=== PATIENT | female | born 1985 | race Caucasian/White ===

== ENCOUNTER 2018-09-10 08:46 | Emergency (ER) | payer OTHER ==
[2018-09-10] MEDS ORDERED: FAMOTIDINE 20 MG/2 ML VIAL IV ONE (09:27)
[2018-09-10] MEDS ORDERED: METHYLPREDNISOLONE 125 MG INJ ONE (09:27)
[2018-09-10] MEDS ORDERED: DIPHENHYDRAMINE 50 MG/ML VIAL ONE (09:27)
--- NOTE | 2018-09-10 10:38 | EDPHYS ---
Physician Documentation [facility] Name: Sara Luevano Age: 32 yrs Sex: Female : 1985 Arrival Date: 09/10/2018 Time: 08:46 Bed 6 Private MD: ED Physician Catrachito Montanez HPI: 09/10 09:32 This 32 yrs old Female presents to ER via Ambulatory with complaints of Chest pm1 Numbness, Bee Sting, Numbness - Leg. 09:32 The patient's rash thought to be caused by insect bites. The rash is located on the pm1 abdomen. The rash can be described as raised. Onset: The symptoms/episode began/occurred this morning. Associated signs and symptoms: Pertinent positives: chest numbness, and numbness to bilateral thighs, Pertinent negatives: difficulty breathing, fever, swelling of lips, swelling of throat, swelling of tongue, vomiting, wheezing. Severity of symptoms: in the emergency department the symptoms have improved. 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 The patient has not experienced similar symptoms in the past. The patient has not recently seen a physician. Patient was bitten by a red wasp on her abdominal area on her way to work. Patient reported numbness to chest and numbness to bilateral thighs that has improved with the administration of Benadryl by mouth at school. No shortness of breath, sore throat. 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 - Social history:: Smoking status: . - Ebola Screening: : Patient denies travel to an Ebola-affected area in the 21 days before illness onset. ROS: 09:40 Constitutional: Negative for fever, chills, and weight loss, Eyes: Negative for injury, pm1 pain, redness, and discharge, ENT: Negative for injury, pain, and discharge, Neck: Negative for injury, pain, and swelling, Cardiovascular: Negative for chest pain, palpitations, and edema, Respiratory: Negative for shortness of breath, cough, wheezing, and pleuritic chest pain, Abdomen/GI: Negative for abdominal pain, nausea, vomiting, diarrhea, and constipation, Back: Negative for injury and pain, : Negative for injury, bleeding, discharge, and swelling, MS/Extremity: Negative for injury and deformity. 09:40 Neuro: Negative for headache, weakness, numbness, tingling, and seizure. 09:40 Skin: Positive for rash, of the abdomen. Exam: 09:40 Constitutional: This is a well developed, well nourished patient who is awake, alert, pm1 and in no acute distress. Head/Face: Normocephalic, atraumatic. Eyes: Pupils equal round and reactive to light, extra-ocular motions intact. Lids and lashes normal. Conjunctiva and sclera are non-icteric and not injected. Cornea within normal limits. Periorbital areas with no swelling, redness, or edema. ENT: Nares patent. No nasal discharge, no septal abnormalities noted. Tympanic membranes are normal and external auditory canals are clear. Oropharynx with no redness, swelling, or masses, exudates, or evidence of obstruction, uvula midline. Mucous membranes moist. Neck: Trachea midline, no thyromegaly or masses palpated, and no cervical lymphadenopathy. Supple, full range of motion without nuchal rigidity, or vertebral point tenderness. No Meningismus. Chest/axilla: Normal chest wall appearance and motion. Nontender with no deformity. No lesions are appreciated. Cardiovascular: Regular rate and rhythm with a normal S1 and S2. No gallops, murmurs, or rubs. Normal PMI, no JVD. No pulse deficits. Respiratory: Lungs have equal breath sounds bilaterally, clear to auscultation and percussion. No rales, rhonchi or wheezes noted. No increased work of breathing, no retractions or nasal flaring. Abdomen/GI: Soft, non-tender, with normal bowel sounds. No distension or tympany. No guarding or rebound. No evidence of tenderness throughout. Back: No spinal tenderness. No costovertebral tenderness. Full range of motion. 09:40 MS/ Extremity: Pulses equal, no cyanosis. Neurovascular intact. Full, normal range of motion. 09:40 Skin: Appearance: normal except for affected area, consistent with urticaria. 09:40 Neuro: Orientation: is normal, Motor: is normal, Sensation: is normal, no obvious gross deficits. Vital Signs: 08:58 BP 133 / 93; Pulse 80; Resp 16; Temp 98.2; Pulse Ox 99% on R/A; Weight 70.31 kg; Height iw 5 ft. 6 in. (167.64 cm); Pain 0/10; 09:44 BP 127 / 83; Pulse 80; Resp 16; Pulse Ox 100% on R/A; hb 10:59 BP 121 / 78; Pulse 81; Resp 17; Pulse Ox 99% on R/A; tw2 08:58 Body Mass Index 25.02 (70.31 kg, 167.64 cm) iw MDM: 09:01 Patient medically screened. [facility] 10:37 Data reviewed: vital signs. Data interpreted: Pulse oximetry: on room air is 100 %. pm1 Interpretation: normal. Counseling: I had a detailed discussion with the patient and/or guardian regarding: the historical points, exam findings, and any diagnostic results supporting the discharge/admit diagnosis, the need for outpatient follow up, to return to the emergency department if symptoms worsen or persist or if there are any questions or concerns that arise at home. 09/10 09:11 Order name: IV Saline Lock; Complete Time: 09:51 pm1 Administered Medications: 09:20 Drug: Benadryl 25 mg Route: IVP; Site: right antecubital; tw2 11:05 Follow up: Response: No adverse reaction tw2 09:24 Drug: Pepcid 20 mg Route: IVP; Site: right antecubital; tw2 11:04 Follow up: Response: No adverse reaction tw2 09:28 Drug: SOLU-Medrol 125 mg Route: IVP; Site: right antecubital; tw2 11:04 Follow up: Response: No adverse reaction tw2 Disposition: 12:37 Co-signature as Attending Physician, Catrachito Montanez MD I agree with the assessment and [facility] plan of care. Disposition: 09/10/18 10:38 Discharged to Home. Impression: Insect bite (nonvenomous) of abdominal wall. - Condition is Stable. - Discharge Instructions: Insect Bite. - Medication Reconciliation Form, Thank You Letter, Antibiotic Education, Prescription Opioid Use, Work release form form. - Follow up: Emergency Department; When: As needed; Reason: Worsening of condition. Follow up: Private Physician; When: 2 - 3 days; Reason: Recheck today's complaints, Continuance of care, Re-evaluation by your physician. - Problem is new. - Symptoms have improved. Signatures: Catrachito Montanez MD MD cha Marinas, Patrick [employer] SALES REPRESENTATIVE [employer] SALES REPRESENTATIVE pm1 Audrey Sheth RN RN tw2 Corrections: (The following items were deleted from the chart) 11:04 10:38 09/10/2018 10:38 Discharged to Home. Impression: Insect bite (nonvenomous) of tw2 abdominal wall. Condition is Stable. Forms are Work release form, Medication Reconciliation Form, Thank You Letter, Antibiotic Education, Prescription Opioid Use. Follow up: Emergency Department; When: As needed; Reason: Worsening of condition. Follow up: Private Physician; When: 2 - 3 days; Reason: Recheck today's complaints, Continuance of care, Re-evaluation by your physician. Problem is new. Symptoms have improved. pm1
--- NOTE | 2018-09-10 10:38 | ER ---
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 Transition of care: patient was not received from another setting of care. Onset: The symptoms/episode began/occurred this morning. Anaphylaxis evaluation, no signs or symptoms of anaphylaxis were noted. Onset of symptoms was September 10, 2018. Risk Assessment: Do you want to hurt yourself or someone else? Patient reports no desire to harm self or others. Initial Sepsis Screen: Does the patient meet any 2 criteria? No. Patient's initial sepsis screen is negative. Does the patient have a suspected source of infection? No. Patient's initial sepsis screen is negative. Care prior to arrival: Medication(s) given: benadryl. 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 - Social history:: Smoking status: . - Ebola Screening: : Patient denies travel to an Ebola-affected area in the 21 days before illness onset. Screenin:08 Abuse screen: Denies threats or abuse. Nutritional screening: No deficits noted. tw2 Tuberculosis screening: No symptoms or risk factors identified. Fall Risk None identified. Assessment: 09:33 General: Appears in no apparent distress. slender, well groomed, Behavior is calm, tw2 cooperative, appropriate for age. Pain: Complains of pain in chest - topically from wasp sting. Neuro: Level of Consciousness is awake, alert, obeys commands, Oriented to person, place, time, situation. Cardiovascular: Capillary refill < 3 seconds Patient's skin is warm and dry. Respiratory: Airway is patent Respiratory effort is even, unlabored, Respiratory pattern is regular, symmetrical, Breath sounds are clear bilaterally. GI: No signs and/or symptoms were reported involving the gastrointestinal system. Abdomen is flat, Bowel sounds present X 4 quads. : No signs and/or symptoms were reported regarding the genitourinary system. EENT: No signs and/or symptoms were reported regarding the EENT system. Derm: Skin is pink, warm \T\ dry. Musculoskeletal: Range of motion: intact in all extremities. 10:00 Reassessment: Patient appears in no apparent distress at this time. No changes from tw2 previously documented assessment. Patient and/or family updated on plan of care and expected duration. Pain level reassessed. Patient is alert, oriented x 3, equal unlabored respirations, skin warm/dry/pink. 11:00 Reassessment: Patient appears in no apparent distress at this time. No changes from tw2 previously documented assessment. Patient and/or family updated on plan of care and expected duration. Pain level reassessed. Patient is alert, oriented x 3, equal unlabored respirations, skin warm/dry/pink. Vital Signs: 08:58 BP 133 / 93; Pulse 80; Resp 16; Temp 98.2; Pulse Ox 99% on R/A; Weight 70.31 kg; Height iw 5 ft. 6 in. (167.64 cm); Pain 0/10; 09:44 BP 127 / 83; Pulse 80; Resp 16; Pulse Ox 100% on R/A; hb 10:59 BP 121 / 78; Pulse 81; Resp 17; Pulse Ox 99% on R/A; tw2 08:58 Body Mass Index 25.02 (70.31 kg, 167.64 cm) iw ED Course: 08:46 Patient arrived in ED. as 09:00 Lopez Caro NP is PHCP. pm1 09:00 Catrachito Montanez MD is Attending Physician. pm1 09:00 Bed in low position. Call light in reach. Adult w/ patient. Pulse ox on. NIBP on. tw2 09:01 Triage completed. iw 09:07 Audrey Sheth RN is Primary Nurse. tw2 09:09 Arm band placed on. tw2 09:20 Inserted saline lock: 22 gauge in right antecubital area, using aseptic technique. tw2 11:03 No provider procedures requiring assistance completed. IV discontinued, intact, tw2 bleeding controlled, No redness/swelling at site. Pressure dressing applied. Administered Medications: 09:20 Drug: Benadryl 25 mg Route: IVP; Site: right antecubital; tw2 11:05 Follow up: Response: No adverse reaction tw2 09:24 Drug: Pepcid 20 mg Route: IVP; Site: right antecubital; tw2 11:04 Follow up: Response: No adverse reaction tw2 09:28 Drug: SOLU-Medrol 125 mg Route: IVP; Site: right antecubital; tw2 11:04 Follow up: Response: No adverse reaction tw2 Outcome: 10:38 Discharge ordered by . pm1 11:03 Discharged to home ambulatory, with significant other. tw2 11:03 Condition: stable 11:03 Discharge instructions given to patient, significant other, Instructed on discharge instructions, follow up and referral plans. Demonstrated understanding of instructions, follow-up care. 11:04 Patient left the ED. tw2 Signatures: Christina Reynoso Irene, RN RN iw Lopez Caro NP BASEBALL HAND SEWER pm1 Iwona Rivera RN RN hb Wise, Tara, RN RN tw2
== END 2018-09-10 11:04 | disposition home or self-care (01) ==
LOC: ER 08:46
DX: T63.461A Toxic effect of venom of wasps, accidental (unintentional), initial encounter (principal); R21 Rash and other nonspecific skin eruption; Z85.9 Personal history of malignant neoplasm, unspecified
CPT/HCPCS: 96374; 96375; 99283; J2930